=== PATIENT | female | born 1980 | race Caucasian/White ===

== ENCOUNTER 2016-10-26 15:47 | Emergency (ER) | payer SELFPAY ==
[~2016-10-26] VITALS: Wt 83.5 kg
[~2016-10-26 15:47] MED LIST: ACET500C5 PO; PRENAT PO
[2016-10-26 17:05] LABS: ADD SCAN DIFF NO
[2016-10-26 17:12] LABS: ADD UMIC YES; URINE BILIRUBIN (Dip) NEGATIVE (NEGATIVE); URINE BLOOD (Dip) 3+ (NEGATIVE); URINE COLOR LT. YELLOW (YELLOW); URINE GLUCOSE (Dip) NEGATIVE (NEGATIVE); URINE KETONES (Dip) NEGATIVE (NEGATIVE); URINE LEUKOCYTE ESTERASE (Dip) NEGATIVE (NEGATIVE); URINE NITRITE (Dip) NEGATIVE (NEGATIVE); URINE TOTAL PROTEIN (Dip) NEGATIVE (NEGATIVE); URINE UROBILINOGEN (Dip) 0.2 E.U./dL (0.1-1.0)
[2016-10-26 17:14] LABS: BASOPHIL # 0.1 10^3/ul (0.0-0.1); BASOPHILS % 0.4 % (0.0-2.0); EOSINOPHILS # 0.2 10^3/ul (0.0-0.5); EOSINOPHILS % 1.4 % (0.0-7.0); HEMATOCRIT 34.2 % (37.0-47.0); HEMOGLOBIN 11.1 g/dl (12.0-16.0); LYMPHOCYTES # 2.3 10^3/ul (0.8-2.9); LYMPHOCYTES % 20.2 % (15.0-51.0); MEAN CORPUSCULAR HEMOGLOBIN 25.8 pg (29.0-33.0); MEAN CORPUSCULAR HGB CONC 32.5 g/dl (32.0-37.0); MEAN CORPUSCULAR VOLUME 79.5 fl (82.0-101.0); MEAN PLATELET VOLUME 9.9 fl (7.4-10.4); MONOCYTE # 0.7 10^3/ul (0.3-0.9); MONOCYTES % 6.5 % (0.0-11.0); NEUTROPHIL # 7.9 10^3/ul (1.6-7.5); NEUTROPHILS % 71.2 % (39.0-77.0); PLATELET COUNT 390 10^3/UL (140-415); RED CELL DISTRIBUTION WIDTH 16.6 % (11.5-14.5); WHITE BLOOD COUNT 11.1 10^3/ul (4.8-10.8)
--- NOTE | 2016-10-26 17:38 | ERD ---
ER Documentation Chief Complaint Date/Time DATE: 10/26/16 TIME: 17:36 Chief Complaint VAG BEED 12 WEEKS PREG HPI 36-year-old female, very pleasant. Telecom Manager use. The patient is a at approximately 13 weeks gestation who presents with vaginal spotting. The patient describes vaginal spotting that started today with mild lumbar back cramping. She denies any heavy clots or heavy flow. No lightheadedness or dizziness. No anterior abdominal pain. ROS All systems reviewed and are negative except as per history of present illness. Medications Home Meds Active Scripts Acetaminophen* (Tylophen*) 500 Mg Capsule, 1 CAP PO Q6H Y for PAIN AND OR ELEVATED TEMP, #20 CAP Prov:ABDULAZIZ GARCIA PA-C 11/25/15 Reported Medications Multivit/Min/Fol Ac/Iron/Pren* ( S*) 1 Tab Tab, 1 TAB PO DAILY, TAB 04/01/14 Allergies Allergies: Coded Allergies: No Known Allergy (Unverified , 04/01/14) PMhx/Soc Medical and Surgical Hx: pt denies Medical Hx History of Surgery: Yes ( ) Anesthesia Reaction: No Hx Neurological Disorder: No Hx Respiratory Disorders: No Hx Cardiac Disorders: No Hx Psychiatric Problems: No Hx Miscellaneous Medical Probl: No Hx Alcohol Use: No Hx Substance Use: No Hx Tobacco Use: No Smoking Status: Never smoker FmHx Family History: No diabetes Physical Exam Vitals Vital Signs Date Time Temp Pulse Resp B/P Pulse Ox O2 Delivery O2 Flow Rate FiO2 10/26/16 15:53 99.2 101 18 125/78 98 Physical Exam General: Well developed, well nourished, no acute distress Head: Normocephalic, atraumatic. Eyes: Pupils equally reactive, EOM intact ENT: Moist mucous membranes Neck: Supple, no lymphadenopathy Respiratory: No respiratory distress Cardiovascular: Good capillary refill Abdominal: Soft, non-tender, non-distended, no peritoneal signs : Deferred MSK: No edema, no unilateral swelling, 5/5 strength Neurologic: Alert and oriented, moving all extremities, normal speech, no focal weakness, no cerebellar signs Skin: No rash Psych: Normal mood Result Diagram: 10/26/16 1700 Results 24 hrs Laboratory Tests Test 10/26/16 17:00 Basophils # 0.110^3/ul Basophils % 0.4% Beta HCG, Quantitative 189795.0mIU/ml Eosinophils # 0.210^3/ul Eosinophils % 1.4% Hematocrit 34.2% Hemoglobin 11.1g/dl Lymphocytes # 2.310^3/ul Lymphocytes % 20.2% Mean Corpuscular Hemoglobin 25.8pg Mean Corpuscular Hemoglobin Concent 32.5g/dl Mean Corpuscular Volume 79.5fl Mean Platelet Volume 9.9fl Monocytes # 0.710^3/ul Monocytes % 6.5% Neutrophils # 7.910^3/ul Neutrophils % 71.2% Nucleated Red Blood Cells # 0.010^3/ul Nucleated Red Blood Cells % 0.0/100WBC Platelet Count 89491^3/UL Red Blood Count 4.3010^6/ul Red Cell Distribution Width 16.6% Urine Amorphous Urates FEW Urine Bacteria FEW Urine Bilirubin NEGATIVE Urine Clarity CLEAR Urine Color LT. YELLOW Urine Glucose NEGATIVE% Urine Hemoglobin 3+ Urine Ketones NEGATIVE Urine Leukocyte Esterase NEGATIVE Urine Microscopic RBC 2-5/HPF Urine Microscopic WBC 0-2/HPF Urine Nitrite NEGATIVE Urine Specific [place] 1.020 Urine Squamous Epithelial Cells MODERATE Urine Total Protein NEGATIVE Urine Urobilinogen 0.2 E.U./dL Urine pH 7.0 White Blood Count 11.110^3/ul Procedures/MDM EKG, MONITORS, & DIAGNOSTIC IMAGING: Pelvic ultrasound: IMPRESSION: Single live intrauterine with an estimated gestational age of 11 weeks and 1 day. Heterogeneous uterus with a uterine leiomyoma. RPTAT: HPNM LAB INTERPRETATION: Serum hCG: Appropriate Rh status: O+, no RhoGam MEDICAL DECISION MAKING: The patient's symptoms are most consistent with acute threatened miscarriage. She exhibits no signs or symptoms concerning for acute ectopic however this needs to be evaluated here in the emergency room and be ruled out. In addition I doubt other acute intra-abdominal process such as ovarian cyst, ovarian torsion, acute appendicitis, colitis, kidney stone, acute pancreatitis or acute cholecystitis. The patient will require further evaluation, laboratory testing and diagnostic imaging to evaluate and rule out acute ectopic . Patient will also require prompt outpatient SOFTWARE QUALITY SPECIALIST follow-up. We discussed this at the bedside. We had an in-depth conversation regarding the diagnosis of threatened miscarriage, the prevalence of this process, the expected management as well as return precautions. ER COURSE: The patient does have apparent asymptomatic bacteriuria and urinalysis. Macrobid will be initiated. The patient has an appropriate ultrasound. The patient is safe for discharge I kept the patient and/or family informed of laboratory and diagnostic imaging results throughout the emergency room course. DISPOSITION PLAN: We discussed follow up with the patient's primary care doctor within 24 to 48 hours as needed. We also discussed return to the emergency room for worsening symptoms or worsening condition. Close outpatient SOFTWARE QUALITY SPECIALIST follow-up for repeat hCG value in 2-3 days and ultrasound as needed. Discharge medications: Macrobid Departure Diagnosis: Primary Impression: Threatened miscarriage Additional Impression: Asymptomatic bacteriuria during Condition: Stable LILY CARPIO MD Oct 26, 2016 17:37
[2016-10-26 17:50] LABS: BACTERIA,URINE FEW; SQUAMOUS EPITHELIAL CELL,UR MODERATE
--- NOTE | 2016-10-26 18:08 | RADRPT ---
PROCEDURE: US OB. CLINICAL INDICATION: Vaginal bleeding TECHNIQUE: Transabdominal and transvaginal views of the pelvis are available for review. COMPARISON: No prior studies are available for comparison. FINDINGS: The mean gestational sac diameter is 5 cm. [place]ber[place]-rump length:4 cm heart rate:171 beats per minute Ultrasound estimated gestational age:11 weeks and 1 day Estimated date of delivery: 05/16/2017. The uterus measures 14.7 x 6.5 x 9.7 cm in size. The uterus is heterogeneous in echogenicity. A hyp oechoic structure is seen in the uterus measuring 3.9 x 2.3 x 3.4 cm in size and is consistent with a leiomyoma. The right ovary measures 3.5 x 1.9 x 2.5 cm and the left ovary measures 3.2 x 1.7 x 2. 2 cm are normal in size and echogenicity with normal color flow. No ovarian or adnexal mass lesion is seen. There is no free fluid. IMPRESSION: Single live intrauterine with an estimated gestational age of 11 weeks and 1 day. Heterogeneous uterus with a uterine leiomyoma. RPTAT: HPNM Physician Bj Date Time Electronically viewed and signed by Physician Bj on 10/26/2016 18:08 /
[2016-10-26] MEDS ORDERED: NITR-58 PO (18:37)
== END 2016-10-26 18:46 | disposition home or self-care (01) ==
LOC: FTE 15:47
DX: O20.0 Threatened abortion (principal); O23.40 Unspecified infection of urinary tract in pregnancy, unspecified trimester
CPT/HCPCS: 36415; 76801; 81001; 81003; 84702; 85025; 86900; 86901

== ENCOUNTER 2017-01-24 15:25 | Emergency (ER) | payer OTHER ==
[~2017-01-24] VITALS: Ht 162.6 cm; Wt 87.0 kg
[~2017-01-24 15:25] MED LIST changes: +NITR-58 PO
[2017-01-24 15:27] VITALS: Ht 162.6 cm; Wt 87.0 kg
--- NOTE | 2017-01-24 17:04 | RADRPT ---
PROCEDURE: US Abdomen. CLINICAL INDICATION: abdominal pain , rash TECHNIQUE: Multiple real-time images were acquired of the patient's right upper quadrant abdomen a nd retroperitoneum utilizing a high resolution transducer. COMPARISON: None FINDINGS: The liver demonstrates increased echogenicity. The liver is enlarged in size and no focal solid les ions are seen. The liver measures 19.5 cm in length. The portal vein is patent with normal direction of flow. No intrahepatic biliary dilatation is seen. No gallstones are identified within the gallbladder. There is no pericholecystic fluid or gallbladd er wall thickening. The common bile duct measures 5 mm in maximal dimension. The visualized portions of the pancreas are unremarkable. The tail of the pancreas is not seen. No free fluid is identified. The right kidney is normal in size, and demonstrate normal echogenicity and cortical thickness. The right kidney measures 13.6 cm in long dimension. There is no evidence of hydronephrosis. There are no kidney stones. RPTAT: AA IMPRESSION: Mild hepatomegaly with diffuse fatty infiltration. No evidence of gallstones. .Landen Hooks MD, Date Time Electronically viewed and signed by .Landen Hooks MD, on 01/24/2017 17:04 .S/
--- NOTE | 2017-01-24 17:06 | RADRPT ---
PROCEDURE: US OB. CLINICAL INDICATION: Size and dates , rash TECHNIQUE: Multiple sonographic images of the pelvis and gravid uterus were obtained. The images were reviewed on a PACS workstation. COMPARISON: No prior studies are available for comparison. FINDINGS: The cervix is closed with a length of 4.5 cm. There is a single viable intrauterine gestation. Cardiac activity is present with 137 beats per min nancy. There is a variable/breech presentation. The placenta is anterior. There is no evidence for an abruption or placenta previa. There is a normal amount of amniotic fluid with a MVP= 7.4 cm. Measurements were made in order to determine age. The results are as follows: BPD =6.0 cm HC =21.3 cm AC =19.7 cm FL =4.3 cm Estimated gestational age of approximately 24 weeks and 0 days based on ultrasound measurements. The estimated date of delivery is 05/16/17, based on ultrasound measurements. The EFW = 666 g RPTAT: AA IMPRESSION: Single viable intrauterine gestation of approximately 24 weeks and 0 days based on ultrasound measu rements. .Landen Hooks MD, Date Time Electronically viewed and signed by .Landen Hooks MD, on 01/24/2017 17:05 .S/
--- NOTE | 2017-01-24 17:18 | ERD ---
ER Documentation Chief Complaint Date/Time DATE: 01/24/17 TIME: 17:16 Chief Complaint RASH TO CHEST X 3 DAYS HPI 28-year-old female who is A1 approximately 24 weeks was referred to the emergency department to rule out cholestasis from her OB secondary to a pruritic rash on her chest for the past 3 days. Patient has had a history of high-risk pregnancies, including hypertension and proteinuria. Last menstrual period being middle to end of July 2016. Her doctor is Dr. Hernandes. She denies abdominal pain, nausea, vomiting, fever. No dizziness, chest pain or shortness of breath. She has not noticed any edema. ROS All systems reviewed and are negative except as per history of present illness. Medications Home Meds Active Scripts Ferrous Sulfate* (Ferrous Sulfate*) 325 Mg Tabec, 325 MG PO TID, #90 TAB Prov:NATHANIEL JEFF PA-C 01/24/17 Nitrofurantoin Monohyd Macrocr* (Macrobid*) 100 Mg Capsr, 100 MG PO BID for 7 Days, CAP Prov:LILY CARPIO MD 10/26/16 Acetaminophen* (Tylophen*) 500 Mg Capsule, 1 CAP PO Q6H Y for PAIN AND OR ELEVATED TEMP, #20 CAP Prov:ABDULAZIZ GARCIA PA-C 11/25/15 Reported Medications Multivit/Min/Fol Ac/Iron/Pren* ( S*) 1 Tab Tab, 1 TAB PO DAILY, TAB 04/01/14 Allergies Allergies: Coded Allergies: No Known Allergy (Unverified , 04/01/14) PMhx/Soc History of Surgery: Yes ( ) Anesthesia Reaction: No Hx Neurological Disorder: No Hx Respiratory Disorders: No Hx Cardiac Disorders: No Hx Psychiatric Problems: No Hx Miscellaneous Medical Probl: No Hx Alcohol Use: No Hx Substance Use: No Hx Tobacco Use: No Smoking Status: Never smoker Physical Exam Vitals Vital Signs Date Time Temp Pulse Resp B/P Pulse Ox O2 Delivery O2 Flow Rate FiO2 01/24/17 15:27 97.7 113 18 121/67 98 Physical Exam General: Well-developed, well-nourished. The patient appears in no acute distress. HEENT: Head is normocephalic, atraumatic. No scleral icterus. Neck: Supple. Nontender. Lungs: Clear to auscultation. Normal air movement. Heart: Regular rate and rhythm. S1 and S2 are normal. No murmurs, gallops, or rubs. Abdomen: Soft, nontender, nondistended. Bowel sounds are normoactive. Appropriate fundal height. Negative Calzada's sign. Extremities: No clubbing or cyanosis. Normal pulses. Moving extremities x 4. No weakness. Neurologic: Alert and oriented 3. No focal deficits. Skin: Normal turgor. No rash or lesions. Result Diagram: 01/24/17 1720 01/24/17 1720 Results 24 hrs Laboratory Tests Test 01/24/17 17:20 White Blood Count 9.310^3/ul Red Blood Count 3.6410^6/ul Hemoglobin 8.7g/dl Hematocrit 28.9% Mean Corpuscular Volume 79.4fl Mean Corpuscular Hemoglobin 23.9pg Mean Corpuscular Hemoglobin Concent 30.1g/dl Red Cell Distribution Width 15.9% Platelet Count 28589^3/UL Mean Platelet Volume 9.9fl Neutrophils % 73.8% Lymphocytes % 17.7% Monocytes % 6.4% Eosinophils % 1.3% Basophils % 0.2% Nucleated Red Blood Cells % 0.0/100WBC Neutrophils # 6.910^3/ul Lymphocytes # 1.710^3/ul Monocytes # 0.610^3/ul Eosinophils # 0.110^3/ul Basophils # 0.010^3/ul Nucleated Red Blood Cells # 0.010^3/ul Urine Color LT. YELLOW Urine Clarity SLIGHTLY CLOUDY Urine pH 6.0 Urine Specific [place] 1.025 Urine Ketones 40 Urine Nitrite NEGATIVE Urine Bilirubin NEGATIVE Urine Urobilinogen 0.2 E.U./dL Urine Leukocyte Esterase NEGATIVE Urine Microscopic RBC NONE SEEN/HPF Urine Microscopic WBC 0-2/HPF Urine Squamous Epithelial Cells MANY Urine Bacteria MANY Urine Hemoglobin NEGATIVE Urine Glucose NEGATIVE% Urine Total Protein TRACE Sodium Level 137mmol/L Potassium Level 3.4mmol/L Chloride Level 102mmol/L Carbon Dioxide Level 24mmol/L Anion Gap 14 Blood Urea Nitrogen 9mg/dl Creatinine 0.42mg/dl Glucose Level 83mg/dl Calcium Level 9.2mg/dl Total Bilirubin 0.2mg/dl Direct Bilirubin 0.00mg/dl Indirect Bilirubin 0.2mg/dl Aspartate Amino Transf (AST/SGOT) 19IU/L Alanine Aminotransferase (ALT/SGPT) 29IU/L Alkaline Phosphatase 70IU/L Total Protein 7.7g/dl Albumin 3.8g/dl Globulin 3.90g/dl Albumin/Globulin Ratio 0.97 Lipase 99U/L PROCEDURE: US Abdomen. CLINICAL INDICATION: abdominal pain , rash TECHNIQUE: Multiple real-time images were acquired of the patient's right upper quadrant abdomen and retroperitoneum utilizing a high resolution transducer. COMPARISON: None FINDINGS: The liver demonstrates increased echogenicity. The liver is enlarged in size and no focal solid lesions are seen. The liver measures 19.5 cm in length. The portal vein is patent with normal direction of flow. No intrahepatic biliary dilatation is seen. No gallstones are identified within the gallbladder. There is no pericholecystic fluid or gallbladder wall thickening. The common bile duct measures 5 mm in maximal dimension. The visualized portions of the pancreas are unremarkable. The tail of the pancreas is not seen. No free fluid is identified. The right kidney is normal in size, and demonstrate normal echogenicity and cortical thickness. The right kidney measures 13.6 cm in long dimension. There is no evidence of hydronephrosis. There are no kidney stones. RPTAT: AA IMPRESSION: Mild hepatomegaly with diffuse fatty infiltration. No evidence of gallstones. .Landen Hooks MD, Date Time Electronically viewed and signed by .Landen Hooks MD, MD on 01/24/2017 17: 04 .S/ PROCEDURE: US OB. CLINICAL INDICATION: Size and dates , rash TECHNIQUE: Multiple sonographic images of the pelvis and gravid uterus were obtained. The images were reviewed on a PACS workstation. COMPARISON: No prior studies are available for comparison. FINDINGS: The cervix is closed with a length of 4.5 cm. There is a single viable intrauterine gestation. Cardiac activity is present with 137 beats per minute. There is a variable/breech presentation. The placenta is anterior. There is no evidence for an abruption or placenta previa. There is a normal amount of amniotic fluid with a MVP= 7.4 cm. Measurements were made in order to determine age. The results are as follows: BPD = 6.0 cm HC = 21.3 cm AC = 19.7 cm FL = 4.3 cm Estimated gestational age of approximately 24 weeks and 0 days based on ultrasound measurements. The estimated date of delivery is 05/16/17, based on ultrasound measurements. The EFW = 666 g RPTAT: AA IMPRESSION: Single viable intrauterine gestation of approximately 24 weeks and 0 days based on ultrasound measurements. .Landen Hooks MD, MD Date Time Electronically viewed and signed by .Landen Hooks MD, MD on 01/24/2017 17: 05 .S/ Procedures/MDM 36-year-old female who is a 24 weeks comes emergency room with a pruritic rash to her chest for the past 3 days. She does not have evidence of cholecystitis, help syndrome, preeclampsia among others are part of my differential diagnosis. Anemia was noted on the CBC, platelets were normal. Her bilirubin was not elevated, AST and ALT are normal as well as lipase. 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 There is no edema on examination. Ultrasound of her gallbladder and right upper quadrant shows hepatic steatosis however no evidence of gallstones or sludge. OB ultrasound shows a single live intrauterine with positive heart tones at 24 weeks. Patient will be discharged at this point from the emergency room and will be sent up to OB for further evaluation and possible monitoring. Departure Diagnosis: Primary Impression: Rash Additional Impressions: Second trimester Anemia Condition: NATHANIEL Barraza PA-C January 24, 2017 17:17
[2017-01-24 17:36] LABS: ADD SCAN DIFF NO
[2017-01-24 17:38] LABS: BASOPHILS % 0.2 % (0.0-2.0); EOSINOPHILS # 0.1 10^3/ul (0.0-0.5); EOSINOPHILS % 1.3 % (0.0-7.0); HEMATOCRIT 28.9 % (37.0-47.0); HEMOGLOBIN 8.7 g/dl (12.0-16.0); LYMPHOCYTES # 1.7 10^3/ul (0.8-2.9); LYMPHOCYTES % 17.7 % (15.0-51.0); MEAN CORPUSCULAR HEMOGLOBIN 23.9 pg (29.0-33.0); MEAN CORPUSCULAR HGB CONC 30.1 g/dl (32.0-37.0); MEAN CORPUSCULAR VOLUME 79.4 fl (82.0-101.0); MEAN PLATELET VOLUME 9.9 fl (7.4-10.4); MONOCYTE # 0.6 10^3/ul (0.3-0.9); MONOCYTES % 6.4 % (0.0-11.0); NEUTROPHIL # 6.9 10^3/ul (1.6-7.5); NEUTROPHILS % 73.8 % (39.0-77.0); PLATELET COUNT 362 10^3/UL (140-415); RED BLOOD COUNT 3.64 10^6/ul (4.20-5.40); RED CELL DISTRIBUTION WIDTH 15.9 % (11.5-14.5); WHITE BLOOD COUNT 9.3 10^3/ul (4.8-10.8)
[2017-01-24 17:43] LABS: ADD UMIC YES; URINE BILIRUBIN (Dip) NEGATIVE (NEGATIVE); URINE BLOOD (Dip) NEGATIVE (NEGATIVE); URINE COLOR LT. YELLOW (YELLOW); URINE GLUCOSE (Dip) NEGATIVE (NEGATIVE); URINE KETONES (Dip) 40 (NEGATIVE); URINE LEUKOCYTE ESTERASE (Dip) NEGATIVE (NEGATIVE); URINE NITRITE (Dip) NEGATIVE (NEGATIVE); URINE TOTAL PROTEIN (Dip) TRACE (NEGATIVE); URINE UROBILINOGEN (Dip) 0.2 E.U./dL (0.1-1.0)
[2017-01-24 17:56] LABS: ALBUMIN 3.8 g/dl (3.3-4.9)
[2017-01-24 17:57] LABS: POTASSIUM 3.4 mmol/L (3.5-5.1)
[2017-01-24 17:58] LABS: URINE RBCS NONE SEEN /HPF (0)
[2017-01-24 17:59] LABS: BACTERIA,URINE MANY; BILIRUBIN,INDIRECT 0.2 mg/dl (0-1.1); BILIRUBIN,TOTAL 0.2 mg/dl (0.2-1.3); CREATININE 0.42 mg/dl (0.44-1.00); SQUAMOUS EPITHELIAL CELL,UR MANY
[2017-01-24 18:00] LABS: ALBUMIN/GLOBULIN RATIO 0.97; CALCIUM 9.2 mg/dl (8.4-10.2); TOTAL PROTEIN 7.7 g/dl (6.1-8.1)
[2017-01-24] MEDS ORDERED: FER325 PO (18:04)
[2017-01-24 18:38] VITALS: BP 117/84; PULSE 89; RESP 16
== END 2017-01-24 18:39 | disposition home or self-care (01) ==
LOC: FTE 15:25
DX: O99.89 Other specified diseases and conditions complicating pregnancy, childbirth and the puerperium (principal); R21 Rash and other nonspecific skin eruption; O99.012 Anemia complicating pregnancy, second trimester; Z3A.24 24 weeks gestation of pregnancy
CPT/HCPCS: 76705; 76805; 80053; 81001; 81003; 83690; 83789; 84702; 85025

== ENCOUNTER 2017-03-11 11:53 | Outpatient (CLI) | payer OTHER ==
[~2017-03-11] VITALS: Ht 157.5 cm; Wt 90.4 kg
[~2017-03-11 11:53] MED LIST changes: +FER325 PO
[2017-03-11 12:16] VITALS: BP 131/65; PULSE 110; RESP 18; Ht 157.5 cm; Wt 90.4 kg
[2017-03-11 12:59] LABS: ADD UMIC NO; UR ASCORBIC ACID NEGATIVE (NEGATIVE); UR BILIRUBIN (Dip) NEGATIVE (NEGATIVE); UR BLOOD (Dip) NEGATIVE (NEGATIVE); UR CLARITY CLEAR (CLEAR); UR COLOR YELLOW (YELLOW); UR GLUCOSE (Dip) NEGATIVE (NEGATIVE); UR KETONES (Dip) NEGATIVE (NEGATIVE); UR LEUKOCYTE ESTERASE (Dip) NEGATIVE Leu/ul (NEGATIVE); UR NITRITE (Dip) NEGATIVE (NEGATIVE); UR SPECIFIC GRAVITY (Dip) 1.011 (1.003-1.030); UR TOTAL PROTEIN (Dip) NEGATIVE (NEGATIVE); UR UROBILINOGEN (Dip) NEGATIVE (NEGATIVE)
--- NOTE | 2017-03-11 13:06 | RADRPT ---
PROCEDURE: OB ultrasound for biophysical profile CLINICAL INDICATION: labor TECHNIQUE: Multiple sonographic images of the pelvis were obtained. Transabdominal views of the g ravid uterus are available for review. The images were reviewed on a PACS workstation. COMPARISON: None FINDINGS: breathing movement = 2/2 tone = 2/2 motion = 2/2 SARAH = 2/2 SARAH = 13.9 cm Single live intrauterine with cardiac activity of 141 bpm. position is breech . The placenta is anterior. IMPRESSION: 1. Single live intrauterine gestation. 2. Biophysical profile = 8/8. 3. SARAH = 13.9 cm. 4. Breech presentation. RPTAT: HH .Dawn Seymour MD, MD Date Time Electronically viewed and signed by .Dawn Seymour MD, on 03/11/2017 13:06 .G/
--- NOTE | 2017-03-11 13:31 | RADRPT ---
PROCEDURE: Obstetrical ultrasound CLINICAL INDICATION: Labor TECHNIQUE: Multiple sonographic images of the pelvis were obtained. The images were reviewed on a PACS workstation. COMPARISON: None FINDINGS: The cervix is closed with a length of 3.6 cm. There is a single viable intrauterine gestation. Cardiac activity is present with 144 beats per minute. There is a breech presentation. The placenta is anterior. There is no evidence for an abruption or placenta previa. There is a normal amount of amniotic fluid with an SARAH = 13.9 cm. Measurements were made in order to determine age. The results are as follows (cm): BPD =7.63 HC =28.40 AC =28.54 FL =5.69 Estimated gestational age by ultrasound of approximately 31 weeks, 0 days. The estimated date of delivery by ultrasound is 05/13/2017. Estimated gestational age by LMP of approximately 32 weeks, 6 days. The estimated date of delivery by LMP is 04/30/2017. EFW = 1768 grams (8th percentile) IMPRESSION: Single viable intrauterine gestation of approximately 31 weeks, 0 days . The estimated date of delivery is 05/13/2017 . Dating by ultrasound is within 13 days of dating by LMP. Breech presentation. Normal SARAH. Estimated weight is in the 8th percentile. RPTAT: EE Physician Nicola Date Time Electronically viewed and signed by Physician Nicola on 03/11/2017 13:31 /
--- NOTE | 2017-03-11 13:54 | TRIAGE ---
OB Triage Datetime Report Generated by CPN: 03/11/2017 13:53 Datetime: 03/11/2017 13:00 Stage of : OB Triage Labor Evaluation Frequency: NONE Monitor Mode: External Resting Tone [place]: Relaxed Heart Rate FHR Baseline Rate: 135 Monitor Mode: External US Variability: Moderate 6-25 bpm Accelerations: 15X15 Decelerations: None Datetime: 03/11/2017 12:13 Assessment Type: Triage Maternal Assessment Level of Consciousness: Fully Conscious DTR's/Clonus: DTRs 2+; No Clonus Headache: Denies Blurred Vision: No Respiratory Effort: Unlabored; Regular Rhythm; Equal Expansion Breath Sounds, Left: Clear and Equal Breath Sounds, Right: Clear and Equal Nausea/Vomiting: Denies RUQ Epigastric Pain: Denies Lower Extremities Edema: Bilateral Lower Extremities Degree: 1+ Upper Extremities Edema: None Degree: None Facial Edema: None Fall Risk Assessment History of Falling: (0) No Secondary Diagnosis: (0) No Ambulatory Aid: (0) Bedrest/Nurse Assist IV Therapy: (0) No Gait: (0) Normal/Bedrest/Immobile Mental Status: (0) Oriented to Own Ability Fall Score: 0 Fall Risk Score Definition: No Risk: No action required Datetime: 03/11/2017 12:10 Monitor Mode: External Monitor Mode: External US Datetime: 03/11/2017 12:06 Time of Arrival: 03/11/2017 11:43 EGA: 30.4 Arrived By: Ambulatory Arrived From: Office Chief Complaint: PT HERE C/O CRAMPING Movement: Present Contractions: Irregular Rupture of Membranes: Denies Vaginal Bleeding: None Vaginal Discharge: Denies Recent Sexual Intercouse: Denies Abdominal Trauma: Not Applicable Patient Complaints: Contractions; Cramping; Back Pain Time Provider Notified: 03/11/2017 12:24 Provider Notified: NORA Initial Plan: EFM. UA, U/S FOR BPP, EFW
== END 2017-03-11 14:03 | disposition home or self-care (01) ==
LOC: OBT 11:53 → L-D 11:55 → OBT 14:03
PROVIDERS: ATTEND Obstetrics & Gynecology
DX: O60.03 Preterm labor without delivery, third trimester (principal); Z3A.31 31 weeks gestation of pregnancy
CPT/HCPCS: 76815; 76817; 76818; 81003; Z7500; G0463

== ENCOUNTER 2017-04-11 22:35 | Outpatient (CLI) | payer OTHER ==
[~2017-04-11] VITALS: Ht 154.9 cm; Wt 92.2 kg
[~2017-04-11 22:35] MED LIST changes: -ACET500C5 PO; -FER325 PO; -NITR-58 PO
[2017-04-11 22:57] VITALS: BP 133/68; PULSE 97; RESP 18
[2017-04-12] MEDS ORDERED: TERBUTALINE 1 MG/ML INJ SC ONE
[2017-04-12 00:27] LABS: ADD UMIC YES; UR ASCORBIC ACID 40 mg/dL (NEGATIVE); UR BACTERIA FEW /HPF (NONE SEEN); UR BILIRUBIN (Dip) NEGATIVE (NEGATIVE); UR BLOOD (Dip) NEGATIVE (NEGATIVE); UR CLARITY SLIGHTLY CLOUDY (CLEAR); UR COLOR YELLOW (YELLOW); UR GLUCOSE (Dip) NEGATIVE (NEGATIVE); UR KETONES (Dip) TRACE mg/dL (NEGATIVE); UR LEUKOCYTE ESTERASE (Dip) NEGATIVE Leu/ul (NEGATIVE); UR MUCUS MODERATE /HPF (NONE SEEN); UR NITRITE (Dip) NEGATIVE (NEGATIVE); UR RBC 1 /HPF (0-5); UR SPECIFIC GRAVITY (Dip) 1.029 (1.003-1.030); UR SQUAMOUS EPITHELIAL CELL FEW /HPF (FEW); UR TOTAL PROTEIN (Dip) 1+ mg/dl (NEGATIVE); UR UROBILINOGEN (Dip) NEGATIVE (NEGATIVE)
--- NOTE | 2017-04-12 01:09 | RADRPT ---
PROCEDURE: OB ultrasound for biophysical profile CLINICAL INDICATION: labor. TECHNIQUE: Multiple sonographic images of the gravid uterus performed. The images were reviewed on a PACS workstation. COMPARISON: 03/11/2017 FINDINGS: A single live intrauterine is identified with heart rate of 152 bpm. Fet us is in a cephalic presentation with [place] presenting for. Placenta is located anterior. Biophysical profile: breathing movement = 2/2 tone = 2/2 motion = 2/2 SARAH = 2/2 SARAH = 15.8 cm. IMPRESSION: 1. Single live intrauterine gestation. 2. Biophysical profile = 8/8. 3. SARAH = 15.8 cm. RPTAT: HMVK .Jairo Waggoner MD, Date Time Electronically viewed and signed by .Jairo Waggoner MD, MD on 04/12/2017 01:09 .K/
--- NOTE | 2017-04-12 01:20 | RADRPT ---
PROCEDURE: US OB. CLINICAL INDICATION: labor. TECHNIQUE: Multiple sonographic images of the pelvis were obtained. Transabdominal imaging only w as performed. The images were reviewed on a PACS workstation. COMPARISON: 03/11/2017. FINDINGS: Single live intrauterine is identified. Cardiac activity is present with 168 beats per mi nute. There is a vertex presentation. Measurements: BPD = 36 weeks 6 days. HC = 37 weeks 3 days. AC = 38 weeks 0 days. FL = 33 weeks 6 days. Estimated gestational age of approximately 36 weeks 4 days. The estimated date of delivery is 05/06/2017. The EFW = 3039 g which is at the 85th percentile. The placenta is anterior. There is no evidence for placenta previa. Cervix is 4.22 cm in length and closed. IMPRESSION: Single live intrauterine gestation of approximately 36 weeks 4 days. RPTAT: HMVK .Jairo Waggoner MD, Date Time Electronically viewed and signed by .Jairo Waggoner MD, on 04/12/2017 01:20 .K/
--- NOTE | 2017-04-12 03:20 | PN ---
Triage Information Date/Time 04/12/300 Weeks of Gestation 34w4d by record today at triage all measurement larger 2wks exept femoral length EFW 3039 CVL 4.2 : 4 Para: 2 Diabetes: none Hypertention: none Additional information uterine contractions since 04/11 relieved by resting Objective Vital Signs Date Time Temp Pulse Resp B/P Pulse Ox O2 Delivery O2 Flow Rate FiO2 04/11/17 22:57 99.0 97 18 133/68 Room Air Heart Rate: 150's Contractions: >10 Minutes Apart Exam VE closed Long high Results/Medications Results 24 hrs Laboratory Tests Test 04/11/17 22:40 Urine Color YELLOW Urine Clarity SLIGHTLY CLOUDY A Urine pH 6.0 Urine Specific [place] 1.029 Urine Ketones TRACE A Urine Nitrite NEGATIVE Urine Bilirubin NEGATIVE Urine Urobilinogen NEGATIVE Urine Leukocyte Esterase NEGATIVE Urine Microscopic RBC 1 Urine Microscopic WBC 2 Urine Squamous Epithelial Cells FEW Urine Bacteria FEW A Urine Mucus MODERATE Urine Hemoglobin NEGATIVE Urine Glucose NEGATIVE Urine Total Protein 1+ H Medications x1 terbutaline Imaging Results BPp 8/8 SARAH 15.8 EFW 3039 85% Assessment/Plan IUP 34w6d? poss 2w more discharge home with routine instructions RTH prn f/u with her OB TIFFANIE AMBROSE MD Apr 12, 2017 03:12
--- NOTE | 2017-04-12 06:18 | TRIAGE ---
OB Triage Datetime Report Generated by CPN: 04/12/2017 06:17 Datetime: 04/12/2017 01:51 Stage of : OB Triage Datetime: 04/12/2017 01:30 Stage of : OB Triage Pain Assessment Pain Scale: 2 Pain Presence: Intermittent Pain Type: Cramping Datetime: 04/12/2017 00:36 Monitor Mode: External Resting Tone [place]: Relaxed Heart Rate FHR Baseline Rate: 135 Monitor Mode: External US Datetime: 04/12/2017 00:15 Heart Rate FHR Baseline Rate: 140 Monitor Mode: External US FHR Baseline Changes: No Baseline Change Variability: Moderate 6-25 bpm Accelerations: 15X15 Decelerations: None Category: Category I Datetime: 04/12/2017 00:00 Labor Evaluation Frequency: none Monitor Mode: External Pattern: Normal: <= 5 Contractions in 10 Minutes Resting Tone [place]: Relaxed Heart Rate FHR Baseline Rate: 125 Monitor Mode: External US FHR Baseline Changes: No Baseline Change Variability: Moderate 6-25 bpm Accelerations: 15X15 Decelerations: None Category: Category I Datetime: 04/11/2017 23:40 Stage of : OB Triage Datetime: 04/11/2017 23:35 Stage of : OB Triage Datetime: 04/11/2017 23:30 Vaginal Exam Dilatation (cms): 0.0 Effacement (%): 0 Station: -4 Membrane Status: Intact Vaginal Bleeding: None Cervix, Consistency: Firm Cervix, Position: Posterior Datetime: 04/11/2017 22:47 Stage of : OB Triage Maternal Assessment Level of Consciousness: Fully Conscious Headache: Denies Blurred Vision: No Respiratory Effort: Unlabored Nausea/Vomiting: Denies RUQ Epigastric Pain: Denies Facial Edema: None Labor Evaluation Frequency: placed Monitor Mode: External Resting Tone [place]: Relaxed Monitor Mode: External US Comments: FHT 140 Pain Assessment Pain Scale: 8 Pain Presence: Intermittent Pain Type: Contraction Pain Location: Abdomen Datetime: 04/11/2017 22:43 Time of Arrival: 04/11/2017 22:30 EGA: 34.6 Arrived By: Wheelchair Arrived From: Home Chief Complaint: hx c/s x2 c/o ucs Movement: Present Contractions: Regular Time Contractions Began: 04/11/2017 09:00 Contractions: Q10 Rupture of Membranes: Denies Vaginal Bleeding: None Vaginal Discharge: Denies Recent Sexual Intercouse: Denies Abdominal Trauma: Not Applicable Patient Complaints: Contractions Time Provider Notified: 04/11/2017 23:35 Provider Notified: Dr Miller Initial Plan: EFM, SVE Datetime: 03/11/2017 13:50 Stage of : OB Triage Maternal Assessment Level of Consciousness: Fully Conscious Labor Evaluation Frequency: NONE Monitor Mode: External Resting Tone [place]: Relaxed Heart Rate FHR Baseline Rate: 145 Monitor Mode: External US Variability: Moderate 6-25 bpm Accelerations: 15X15 Decelerations: None Pain Assessment Pain Scale: 3 Pain Presence: Constant Pain Type: Ache Pain Location: Abdomen Pain Goal: 3 Pain Relief Measures: Comfort Measures Membrane Status: Intact Vaginal Bleeding: None Datetime: 03/11/2017 13:00 Maternal Assessment Level of Consciousness: Fully Conscious Pain Assessment Pain Scale: 3 Pain Presence: Constant Pain Type: Ache Pain Location: Abdomen Pain Goal: 3 Pain Relief Measures: Comfort Measures Membrane Status: Intact Vaginal Bleeding: None Datetime: 03/11/2017 12:13 Fall Risk Assessment Fall Score: 0 Fall Risk Score Definition: No Risk: No action required Datetime: 03/11/2017 12:06 EGA: 30.3
== END 2017-04-12 02:00 | disposition home or self-care (01) ==
LOC: OBT 22:35 → L-D 22:37 → OBT 04-12 02:00
PROVIDERS: ATTEND Obstetrics & Gynecology
DX: O62.9 Abnormality of forces of labor, unspecified (principal); Z3A.34 34 weeks gestation of pregnancy
CPT/HCPCS: 76815; 76818; 81001; G0463; J3105

== ENCOUNTER 2017-04-20 15:12 | Outpatient (CLI) | payer OTHER ==
[~2017-04-20] VITALS: Ht 154.9 cm; Wt 93.0 kg
--- NOTE | 2017-04-20 16:34 | RADRPT ---
PROCEDURE: US OB biophysical profile. CLINICAL INDICATION: decreased movements, pain TECHNIQUE: Multiple sonographic images of the pelvis were obtained. The images were reviewed on a PACS workstation. COMPARISON: 04/12/17 FINDINGS: There is a single viable intrauterine gestation. Cardiac activity is present with 123 beats per min nancy. There is a transverse maternal right presentation. The placenta is anterior. There is no evidence of placental abruption. There is a normal amount of amniotic fluid with an SARAH = 11.3 cm. Biophysical profile: movement 2/2 tone 2/2. breathing 2/2 SARAH 2/2 Total 04/23 RPTAT: AA . IMPRESSION: Normal biophysical profile. . .Landen Hooks MD, MD Date Time Electronically viewed and signed by .Landen Hooks MD, MD on 04/20/2017 16:33 .S/
[2017-04-20 16:57] VITALS: BP 123/64; PULSE 106; RESP 18; Ht 154.9 cm; Wt 93.0 kg
--- NOTE | 2017-04-20 17:14 | CONS ---
Date/Time of Note Date/Time of Note DATE: 04/20/17 TIME: 16:57 Consultation Date/Type/Reason Admit Date/Time April 20, 2017 OB triage consult Reason for Consultation This patient is a 37 years old 4 para 2 1 who had 2 previous deliveries by section. Her estimated date of confinement is May 17, 2017 which makes her 36 weeks and 1 day now. She came in complaining of abdominal pain ,contractions and vaginal pressure On examination; she is a well-developed well-nourished woman near term. Her vital signs are basically normal with blood pressure of 123/64, pulse rate 106,respiration 18, and temperature 98.3 Her abdomen is soft ,very rare contractions , heart tone is normal . On pelvic examination cervix is closed ,50% effaced -3 station with intact membranes. Constitutional: No chills, No diaphoresis, No disoriented, No febrile, No improved, No no complaints, No other, No poor po, No requiring IVF, No requiring O2 Eyes: No discharge, No no complaints, No other, No pain, No redness, No visual change ENT: No bleeding, No congestion, No discharge, No dysphagia, No no complaints, No other, No pain, No sore throat Respiratory: No cough, No no complaints, No other, No pain, No pleuritic pain, No shortness of breath, No sputum, No wheezing Cardiovascular: No chest pain, No edema, No lightheadedness, No no complaints, No orthopenea, No other, No palpitations, No paroxysmal nocturnal dyspnea Gastrointestinal: other (Abdomen is soft ,no dimension , heart tone is normal), No blood, No constipation, No decreased appetite, No diarrhea, No flatus, No nausea, No no complaints, No pain, No passing stool, No vomiting Genitourinary: other (No CVA tenderness) Musculoskeletal: No back pain, No bone/joint pain, No neck pain, No no complaints, No other, No restricted range of motion, No swelling Skin: No bruising, No erythema, No laceration, No no complaints, No other, No pruritis, No rash, No skin lesions Neurologic: No confusion, No dizziness, No focal-weakness, No headache, No no complaints, No seizure, No syncope Endocrine: No dry skin, No no complaints, No other, No polydypsia, No polyuria , No temp intolerance Additional Comments We did an ultrasound study the report was a single viable intrauterine gestation with heart low 123 bpm in transverse position Center was anterior no evidence of abruption her biophysical profile was 8/8 and the SARAH was reported 11.3 cm With these finding patient was discharged home to be followed in Dr. Bill Maria's clinic Final diagnosis; 36 weeks false labor MONTY STEWART MD Apr 20, 2017 17:10
== END 2017-04-20 17:00 | disposition home or self-care (01) ==
LOC: OBT 15:12 → L-D 15:17 → OBT 17:00
PROVIDERS: ATTEND Obstetrics & Gynecology
DX: O47.03 False labor before 37 completed weeks of gestation, third trimester (principal); Z3A.36 36 weeks gestation of pregnancy; O34.219 Maternal care for unspecified type scar from previous cesarean delivery
CPT/HCPCS: 76818; Z7500; G0463

== ENCOUNTER 2017-05-01 14:28 | Inpatient (IN) | payer OTHER ==
[~2017-05-01] VITALS: Ht 154.9 cm; Wt 91.8 kg
[~2017-05-01 14:28] MED LIST changes: +ACET500C5 PO; +FER325 PO; +NITR-58 PO
[2017-05-01 14:54] VITALS: Ht 154.9 cm; Wt 91.8 kg
[2017-05-01 14:55] VITALS: BP 135/73; PULSE 56; RESP 18
--- NOTE | 2017-05-01 15:37 | RADRPT ---
PROCEDURE: US OB biophysical profile. CLINICAL INDICATION: decreased movements, contractions TECHNIQUE: Multiple sonographic images of the pelvis were obtained. The images were reviewed on a PACS workstation. COMPARISON: 04/20/2017 FINDINGS: There is a single viable intrauterine gestation. Cardiac activity is present with 123 beats per min cach[place] dehe. There is a vertex presentation. The placenta is fundal. There is no evidence of placental abruption. There is a normal amount of amniotic fluid with an SARAH = 13.3 cm. Biophysical profile: movement 2/2 tone 2/2. breathing 2/2 SARAH 2/2 Total 04/23 RPTAT: AA . IMPRESSION: Normal biophysical profile. . .Landen Hooks MD, MD Date Time Electronically viewed and signed by .Landen Hooks MD, MD on 05/01/2017 15:37 .S/
[2017-05-01] MEDS ORDERED: LACTATED RINGER'S 1,000 ML IV ONE ×2 (16:30→19:33)
[2017-05-01] MEDS ORDERED: TERBUTALINE 1 MG/ML INJ SC ONE (16:30)
[2017-05-01 16:52] LABS: ADD UMIC NO; UR ASCORBIC ACID NEGATIVE (NEGATIVE); UR BACTERIA FEW /HPF (NONE SEEN); UR BILIRUBIN (Dip) NEGATIVE (NEGATIVE); UR BLOOD (Dip) NEGATIVE (NEGATIVE); UR CLARITY SLIGHTLY CLOUDY (CLEAR); UR COLOR YELLOW (YELLOW); UR GLUCOSE (Dip) NEGATIVE (NEGATIVE); UR KETONES (Dip) 1+ mg/dL (NEGATIVE); UR LEUKOCYTE ESTERASE (Dip) NEGATIVE Leu/ul (NEGATIVE); UR NITRITE (Dip) NEGATIVE (NEGATIVE); UR RBC 0 /HPF (0-5); UR SPECIFIC GRAVITY (Dip) 1.015 (1.003-1.030); UR SQUAMOUS EPITHELIAL CELL FEW /HPF (FEW); UR TOTAL PROTEIN (Dip) NEGATIVE (NEGATIVE); UR UROBILINOGEN (Dip) NEGATIVE (NEGATIVE)
[2017-05-01] MEDS ORDERED: LACTATED RINGER'S 1,000 ML IV SCH ×2 (17:57→21:30)
[2017-05-01] MEDS ORDERED: CARBOPROST 250 MCG INJ IM PRN ×2 (18:00→21:30)
[2017-05-01] MEDS ORDERED: CEFAZOLIN 2 GM/50 ML (PMX) 50 ML IV SCH (18:00)
[2017-05-01] MEDS ORDERED: MISOPROSTOL 200 MCG TAB PR PRN ×2 (18:00→21:30)
[2017-05-01] MEDS ORDERED: OXYTOCIN 30 UNITS/LR 500 ML IV PRN ×2 (18:00→21:30)
[2017-05-01] MEDS ORDERED: METHYLERGONOVINE 0.2 MG INJ IM PRN ×2 (18:00→21:30)
[2017-05-01 18:16] LABS: BASOPHILS % 0.3 % (0.0-2.0); EOSINOPHILS # 0.1 10^3/ul (0.0-0.5); EOSINOPHILS % 0.6 % (0.0-7.0); HEMATOCRIT 27.2 % (37.0-47.0); HEMOGLOBIN 8.3 g/dl (12.0-16.0); LYMPHOCYTES # 2.3 10^3/ul (0.8-2.9); LYMPHOCYTES % 24.1 % (15.0-51.0); MEAN CORPUSCULAR HEMOGLOBIN 21.6 pg (29.0-33.0); MEAN CORPUSCULAR HGB CONC 30.5 g/dl (32.0-37.0); MEAN CORPUSCULAR VOLUME 70.8 fl (82.0-101.0); MEAN PLATELET VOLUME 9.8 fl (7.4-10.4); MONOCYTE # 0.5 10^3/ul (0.3-0.9); MONOCYTES % 4.9 % (0.0-11.0); NEUTROPHILS % 69.5 % (39.0-77.0); PLATELET COUNT 357 10^3/UL (140-415); RED BLOOD COUNT 3.84 10^6/ul (4.20-5.40); RED CELL DISTRIBUTION WIDTH 18.4 % (11.5-14.5); WHITE BLOOD COUNT 9.6 10^3/ul (4.8-10.8)
[2017-05-01 18:49] LABS: INR 0.97; PARTIAL THROMBOPLASTIN TIME 29.5 Sec (25.0-35.0); PROTIME 12.9 Sec (12.2-14.2)
[2017-05-01] MEDS ORDERED: ONDANSETRON 4 MG INJ ONE (19:28)
[2017-05-01] MEDS ORDERED: CITRIC ACID/NA CITRATE 30 ML CUP ONE (19:29)
[2017-05-01] MEDS ORDERED: AMPICILLIN 2 GM/NS (PMX) 100 ML IVPB ONE (19:30)
[2017-05-01] MEDS ORDERED: ONDANSETRON 4 MG INJ IV ONE (20:00)
[2017-05-01] MEDS ORDERED: CITRIC ACID/NA CITRATE 30 ML CUP PO ONE (20:00)
[2017-05-01] MEDS ORDERED: FENTAnyl 50 MCG/ML VIAL ONE (20:10)
[2017-05-01] MEDS ORDERED: morphine SULFATE/PF (10 MG/10 ML) INJ ONE (20:10)
[2017-05-01] MEDS ORDERED: METOCLOPRAMIDE 10 MG INJ ONE (20:37)
[2017-05-01] MEDS ORDERED: PHENYLephrine (100 MCG/ML) 5ML SYG ONE ×2 (20:37→21:07)
[2017-05-01] MEDS ORDERED: EPHEDrine SULFATE 50 MG/5 ML SYG ONE (21:22)
[2017-05-01] MEDS ORDERED: LANOLIN 7 GM TUBE TOP PRN (21:30)
[2017-05-01] MEDS ORDERED: DIPHENHYDRAMINE 50 MG INJ IV PRN (22:00)
[2017-05-01] MEDS ORDERED: TRIMETHOBENZAMIDE 100 MG/ML VIAL IM PRN (22:00)
[2017-05-01] MEDS ORDERED: HYDROmorphONE 1 MG/ML SYG IV PRN ×2 (22:00)
[2017-05-01] MEDS ORDERED: ONDANSETRON 4 MG INJ IV PRN (22:00)
[2017-05-01] MEDS ORDERED: NALOXONE (0.4 MG/ML) INJ IV PRN (22:00)
[2017-05-01] MEDS ORDERED: NALBUPHINE HCL (10 MG/1 ML) INJ IV PRN (22:00)
[2017-05-01] MEDS: KETOROLAC 30 MG INJ IV PRN (23:25)
[2017-05-02] VITALS (9 sets, daily range): BP systolic 113–130; BP diastolic 54–73; PULSE 65–103; RESP 13–18
[2017-05-02] MEDS: OXYTOCIN 30 UNITS/LR 500 ML IV SCH ×4 (00:36→12:00)
[2017-05-02] MEDS: IBUPROFEN 600 MG TAB PO SCH ×4 (01:00→18:00)
[2017-05-02] MEDS: CEFAZOLIN 2 GM/50 ML (PMX) 50 ML IV SCH ×2 (04:39→13:57)
[2017-05-02] MEDS: KETOROLAC 30 MG INJ IV PRN ×3 (05:35→17:37)
[2017-05-02] MEDS: SENNA/DOCUSATE NA (8.6MG/50MG) TAB PO SCH ×2 (09:27→21:00)
--- NOTE | 2017-05-02 09:53 | TRIAGE ---
OB Triage Datetime Report Generated by CPN: 05/01/2017 17:55 Datetime: 05/01/2017 17:00 Stage of : OB Triage Maternal Assessment Level of Consciousness: Fully Conscious Labor Evaluation Frequency: 2-6 Monitor Mode: External Duration (sec)2399: 50-70 Quality: Moderate Resting Tone [place]: Relaxed Heart Rate FHR Baseline Rate: 120 Monitor Mode: External US Variability: Moderate 6-25 bpm Accelerations: 15X15 Decelerations: None Pain Assessment Pain Scale: 9 Pain Presence: Intermittent Pain Type: Cramping Pain Location: Abdomen Pain Goal: 3 Vaginal Exam Membrane Status: Intact Vaginal Bleeding: None Datetime: 05/01/2017 16:00 Stage of : OB Triage Maternal Assessment Level of Consciousness: Fully Conscious Labor Evaluation Frequency: 2-4 Monitor Mode: External Duration (sec)2399: 50-70 Quality: Moderate Resting Tone [place]: Relaxed Heart Rate FHR Baseline Rate: 120 Monitor Mode: External US Variability: Moderate 6-25 bpm Accelerations: 15X15 Decelerations: None Category: Category I Pain Assessment Pain Scale: 9 Pain Presence: Intermittent Pain Type: Cramping Pain Location: Abdomen Pain Goal: 3 Vaginal Exam Membrane Status: Intact Vaginal Bleeding: None Datetime: 05/01/2017 14:51 Assessment Type: Triage Maternal Assessment Level of Consciousness: Fully Conscious DTR's/Clonus: DTRs 2+; No Clonus Headache: Denies Blurred Vision: No Respiratory Effort: Unlabored; Regular Rhythm; Equal Expansion Breath Sounds, Left: Clear and Equal Breath Sounds, Right: Clear and Equal Nausea/Vomiting: Denies RUQ Epigastric Pain: Denies Lower Extremities Edema: Bilateral Lower Extremities Degree: 1+ Upper Extremities Edema: None Degree: None Facial Edema: None Fall Risk Assessment History of Falling: (0) No Secondary Diagnosis: (0) No Ambulatory Aid: (0) Bedrest/Nurse Assist IV Therapy: (0) No Gait: (0) Normal/Bedrest/Immobile Mental Status: (0) Oriented to Own Ability Fall Score: 0 Fall Risk Score Definition: No Risk: No action required Datetime: 05/01/2017 14:40 Monitor Mode: External Monitor Mode: External US Datetime: 05/01/2017 14:30 Time of Arrival: 05/01/2017 14:20 EGA: 37.5 Arrived By: Wheelchair Arrived From: Office Chief Complaint: PT SENT FROM CLINIC FOR R/O LABOR Movement: Present Contractions: Irregular Rupture of Membranes: Denies Vaginal Bleeding: None Vaginal Discharge: Present Recent Sexual Intercouse: Denies Abdominal Trauma: Not Applicable Patient Complaints: Contractions; Cramping; Back Pain Provider Notified: ESHAGHIAN Initial Plan: TERB/IV HYDRATION/BPP Datetime: 04/20/2017 16:54 Stage of : OB Triage Datetime: 04/20/2017 16:08 Labor Evaluation Frequency: 0 Monitor Mode: External Duration (sec)2399: 0 Resting Tone [place]: Relaxed Contraction Comments: PT DENIES UC'S AT THIS TIME , NO UC'S NOTED Heart Rate FHR Baseline Rate: 135 Monitor Mode: External US Variability: Moderate 6-25 bpm Accelerations: 15X15 Decelerations: None Category: Category I Datetime: 04/20/2017 15:46 Time of Arrival: 04/20/2017 15:05 EGA: 36.1 Arrived By: Ambulatory Arrived From: Home Chief Complaint: labial pain 8/10 and vaginal pressure Movement: Present Vaginal Bleeding: None Vaginal Discharge: Denies Recent Sexual Intercouse: Denies Time Provider Notified: 04/20/2017 15:35 Provider Notified: foroohar Initial Plan: SVE AND CALL MD Datetime: 04/11/2017 22:43 EGA: 34.6 Datetime: 03/11/2017 12:13 Fall Score: 0 Fall Risk Score Definition: No Risk: No action required Datetime: 03/11/2017 12:06 EGA: 30.3
--- NOTE | 2017-05-02 09:56 | PREOPHP ---
DATE OF ADMISSION: 05/01/2017 HISTORY OF PRESENT ILLNESS: Ms. Heidy Bernard is a 37- year-old, 4, para 2 ETC 05/17/2017 intrauterine at 37 weeks and 6 days gestational age with a history of previous x2 complaining of severe lower abdominal pain with contractions. Pain scale of 9-10 out of 10. She denies any vaginal bleeding or discharge. She presented to triage where she was having regular contractions and given terbutaline for tocolysis. She is currently 3 cm dilated, 50 percent effaced, -2 station. After explaining the risks, benefits, and alternatives, patient desires elective repeat delivery and declined . Her care took place at [facility]. PAST MEDICAL HISTORY: None. MEDICATIONS: 1. vitamins. 2. Acyclovir. PAST SURGICAL: x2 previous . 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 GYNECOLOGICAL HISTORY: TOCO regular 34 days. Denies any sexually transmitted disease. Sexually active with 1 partner. The patient has a history of genital herpes. SOCIAL HISTORY: Denies any smoking, drugs, or alcohol. FAMILY HISTORY: None. REVIEW OF SYSTEMS: All within normal except history of present illness. PHYSICAL EXAMINATION: HEENT: Within normal limits. CARDIAC: S1, S2. Regular rhythm. ABDOMEN: Gravid, positive lower abdominal tenderness. EXTREMITIES: No edema. No calf tenderness. VAGINAL: No active genital lesions. Cervical dilation 3 cm 50 percent, -2 station. heart tracing category 1. TOCO, irregular contractions. ASSESSMENT: A 37-year-old, 4, para 2, intrauterine at term and in labor. Previous x2. Desires elective repeat delivery. Declined . PLAN: Consent for repeat delivery. Risks, benefits, alternatives and all questions were answered. Dictated By: Jairo Miller MD /kee/waldo /Document#: [id number]
[2017-05-02] MEDS: LACTATED RINGER'S 1,000 ML IV SCH ×2 (10:00→17:41)
[2017-05-02 10:01] LABS: ABNORMAL IP MESSAGE 1; BASOPHILS % 0.2 % (0.0-2.0); EOSINOPHILS % 0.2 % (0.0-7.0); HEMATOCRIT 21.1 % (37.0-47.0); MEAN CORPUSCULAR HEMOGLOBIN 21.5 pg (29.0-33.0); MEAN CORPUSCULAR HGB CONC 30.3 g/dl (32.0-37.0); MEAN PLATELET VOLUME 9.8 fl (7.4-10.4); MONOCYTE # 0.7 10^3/ul (0.3-0.9); MONOCYTES % 7.6 % (0.0-11.0); NEUTROPHILS % 79.4 % (39.0-77.0); PLATELET COUNT 289 10^3/UL (140-415); RED BLOOD COUNT 2.97 10^6/ul (4.20-5.40); RED CELL DISTRIBUTION WIDTH 18.5 % (11.5-14.5)
--- NOTE | 2017-05-02 10:01 | OPR ---
DATE OF OPERATION: 05/01/2017 PRIMARY DIAGNOSIS: A 37-year-old, 4, para 2, intrauterine at 37 weeks and 6 days gestational age. Previous x2, in labor, advanced maternal age. Desires elective repeat delivery. Declined . POSTOPERATIVE DIAGNOSIS: 1. A 37-year-old, 4, para 2, intrauterine at 37 weeks and 6 days gestational age. Previous x2, in labor, advanced maternal age. Desires elective repeat delivery. Declined . 2. malpresentation, abdiaziz breech. OPERATIVE PROCEDURE: Repeat low transverse delivery. SURGEON: Dr. Miller. ANIMAL CARETAKER SUPERVISOR: Charlotte Mckeon MD ANESTHESIA: Spinal. COMPLICATIONS: None. ESTIMATED BLOOD LOSS: 350 mL. OPERATIVE FINDINGS AT SURGERY: A viable male, Apgars 9, 9, respectively at 1 and 5 minutes, weight 3305 g and abdiaziz breech presentation. Normal uterus, tubes, and ovaries. OPERATIVE PROCEDURE: Procedure after explaining the risks, benefits, alternatives, patient consent sign in chart. The patient was taken to the operating room, where spinal anesthesia was found to be adequate. She was then prepared and draped in a normal sterile fashion in dorsal supine position with a leftward tilt. A Pfannenstiel skin incision was then made with a scalpel and carried through the underlying of the fascia. The fascia was incised in the midline. Incision was extended laterally with Heck scissors. The superior aspect of the fascial incision was grasped with Barrington clamps, elevated, and underlying rectus muscles dissected off bluntly. Similarly, the inferior aspect of this incision was grasped, tented up with Barrington clamps and the rectus muscles were dissected off bluntly. The rectus muscles were in midline. Peritoneum identified, tented up, entered sharply with Metzenbaum scissors. The peritoneal incision was extended superiorly and good visualization of the bladder. The bladder blade was then inserted. The vesicouterine peritoneum identified, grasped with pickups, entered sharply with Metzenbaum scissors. This incision was then extended laterally and a bladder flap created digitally. The bladder blade was then reinserted and the lower segment incised in a transverse fashion with the scalpel. The uterine incision was extended laterally. The bladder blade was removed. The buttock were delivered to the level of the scapula. The right arm was flipped across the chest and delivered. The fetus was rotated 180 degrees and the left arm was flipped across the chest and delivered. The head was delivered atraumatically. The nose and the nose and mouth were suctioned and cord clamped and cut. The was handed off to the awaiting pediatric team. The placenta was then removed. The uterus was exteriorized and cleaned and cleared of all clots and debris. The uterine incision was repaired with 1-0 chromic in a running, locked fashion. A second of the same suture was used for imbrication, obtaining excellent hemostasis. The uterus was returned to the abdomen. The gutters were cleared of all clots. The peritoneum and rectus abdominal muscles reapproximated with 3-0 Vicryl in the interrupted fashion. The fascia was reapproximated with 0 Vicryl in a running fashion. The subcutaneous tissue was reapproximated with 2-0 plain gut in a running fashion. The skin was closed with raad. The patient tolerated procedure well. Sponge, lap, needle counts correct. The patient was taken to recovery room in stable condition. Dictated By: Jairo Miller MD /kee/waldo /Document#: [id number] BRE
[2017-05-02 10:10] LABS: HEMOGLOBIN 6.4 g/dl (12.0-16.0); POSITIVE DIFF @See below
[2017-05-02 10:11] LABS: PATH REVIEW? YES
[2017-05-02] MEDS: FERROUS SULFATE (EC) 325 MG TAB PO SCH ×2 (15:01→21:29)
[2017-05-02] MEDS ORDERED: CEFAZOLIN 2 GM/50 ML (PMX) 50 ML IVPB SCH (21:00)
[2017-05-02] MEDS: OXYCODONE/ACETAMINOPHEN (5/325) TAB PO PRN (21:28)
--- NOTE | 2017-05-02 23:21 | QN ---
Documentation Comment progress note pod 1 patient seen and evaluated no complaints no headache, n/v/, sob, visual change, palpitation vs stable afebrile ab dressin clean no distention nt extremity no edema no calf tenderness a/ sp cd pod 1 asymptomatic anemia p/ iron supplement repeat cbc in am consider blood transfusion if patient is symptomatic MARCIE MELENDEZ MD May 02, 2017 23:21
[2017-05-03] MEDS: IBUPROFEN 600 MG TAB PO SCH ×4 (00:02→18:38)
[2017-05-03 03:44] VITALS: BP 111/70; PULSE 91; RESP 18
[2017-05-03] MEDS: OXYCODONE/ACETAMINOPHEN (5/325) TAB PO PRN ×4 (03:44→21:07)
[2017-05-03 08:00] VITALS: BP 116/58; PULSE 82; RESP 16
[2017-05-03] MEDS: SENNA/DOCUSATE NA (8.6MG/50MG) TAB PO SCH ×2 (09:00→21:07)
[2017-05-03] MEDS: FERROUS SULFATE (EC) 325 MG TAB PO SCH ×3 (09:08→21:08)
[2017-05-03 10:49] LABS: ABNORMAL IP MESSAGE 1; BASOPHILS % 0.2 % (0.0-2.0); EOSINOPHILS # 0.1 10^3/ul (0.0-0.5); EOSINOPHILS % 1.2 % (0.0-7.0); HEMATOCRIT 20.3 % (37.0-47.0); LYMPHOCYTES # 1.3 10^3/ul (0.8-2.9); LYMPHOCYTES % 15.3 % (15.0-51.0); MEAN CORPUSCULAR HEMOGLOBIN 21.9 pg (29.0-33.0); MEAN CORPUSCULAR HGB CONC 30.5 g/dl (32.0-37.0); MEAN CORPUSCULAR VOLUME 71.7 fl (82.0-101.0); MEAN PLATELET VOLUME 9.5 fl (7.4-10.4); MONOCYTE # 0.5 10^3/ul (0.3-0.9); MONOCYTES % 6.2 % (0.0-11.0); NEUTROPHILS % 76.1 % (39.0-77.0); PLATELET COUNT 313 10^3/UL (140-415); RED BLOOD COUNT 2.83 10^6/ul (4.20-5.40); RED CELL DISTRIBUTION WIDTH 18.5 % (11.5-14.5); WHITE BLOOD COUNT 8.4 10^3/ul (4.8-10.8)
[2017-05-03 10:58] LABS: POSITIVE DIFF @See below
[2017-05-03 11:02] LABS: HEMOGLOBIN 6.2 g/dl (12.0-16.0)
--- NOTE | 2017-05-03 12:22 | QN ---
Documentation Comment POD#1 is stable afebrile No Vb +flatus+Adequate urine Vs Stable Gen NAD Abd soft NT NDdressing to be removed Genitalia No blood at perinium --->discharge plan tomorrow -->ambulation LUCA VALADEZ M.D. May 03, 2017 12:22
[2017-05-03 15:30] LABS: WHITE BLOOD COUNT 8.6 10^3/ul (4.8-10.8)
[2017-05-03 16:00] VITALS: BP 120/59; PULSE 95; RESP 17
[2017-05-03 20:00] VITALS: BP 116/61; PULSE 94; RESP 18
[2017-05-04] MEDS: IBUPROFEN 600 MG TAB PO SCH ×7 (00:18→23:43)
[2017-05-04] MEDS: OXYCODONE/ACETAMINOPHEN (5/325) TAB PO PRN ×5 (00:46→23:01)
[2017-05-04 04:00] VITALS: BP 122/75; PULSE 91; RESP 18
[2017-05-04 08:00] VITALS: BP 123/71; PULSE 94; RESP 16
[2017-05-04] MEDS: SENNA/DOCUSATE NA (8.6MG/50MG) TAB PO SCH ×2 (09:05→21:02)
[2017-05-04] MEDS: FERROUS SULFATE (EC) 325 MG TAB PO SCH ×3 (09:05→21:02)
--- NOTE | 2017-05-04 15:22 | QN ---
Documentation Comment Progress Note POD #3 Pt c/o breast pain as her milk is coming in but not free flowing yet. Pt is pumping her breasts with a small amount of milk coming out. Had a shower yesterday but not today. Does not want to go home today. T=98.2 BP 123/71 Breasts engorged. Pumping. Incison clean, dry and intact. Lochia minimal. Ext 3+ edema. P: Continue care and plan d/c tomorrow. D/C IV so pt is more free to massage her breasts. Pt needs hot packs and/or a hot shower and breast massage to help get the breast milk moving. Encourage ambulation. NIURKA STEIN MD May 04, 2017 15:22
[2017-05-04 16:03] VITALS: BP 133/69; PULSE 91; RESP 16
[2017-05-04 20:00] VITALS: BP 135/60; PULSE 87; RESP 18
[2017-05-05] VITALS (15 sets, daily range): BP systolic 109–139; BP diastolic 52–69; PULSE 78–95; RESP 18–21
[2017-05-05] MEDS: OXYCODONE/ACETAMINOPHEN (5/325) TAB PO PRN ×4 (03:29→20:00)
[2017-05-05] MEDS: IBUPROFEN 600 MG TAB PO SCH ×4 (05:44→23:30)
[2017-05-05] MEDS: SENNA/DOCUSATE NA (8.6MG/50MG) TAB PO SCH ×2 (08:55→21:15)
[2017-05-05] MEDS: FERROUS SULFATE (EC) 325 MG TAB PO SCH ×3 (08:55→21:15)
[2017-05-05] MEDS ORDERED: DIPHENHYDRAMINE 50 MG CAP PO ONE (10:00)
--- NOTE | 2017-05-05 10:42 | QN ---
Documentation Comment Progress note postop day 4 Patient seen and evaluated patient complains of dizziness and weakness She denies any shortness of breath headache nausea vomiting Vital signs stable afebrile General appearance pale Abdomen soft nontender clean dry and intact no distention Extremity +3 bilateral pitting edema Hemoglobin 6.2 hematocrit 20.3 Assessment status post delivery postop day for symptomatic anemia Plan after explaining the risks benefits alternatives patient patient agreed for blood transfusion Transfuse 2 units packed RBC Pretreat with Benadryl and Tylenol MARCIE MELENDEZ MD May 05, 2017 10:42
[2017-05-06] MEDS: OXYCODONE/ACETAMINOPHEN (5/325) TAB PO PRN ×2 (03:09→11:07)
--- NOTE | 2017-05-06 03:35 | QN ---
Documentation Comment Progress note postop day 5 Patient seen and evaluated Patient denies any dizziness palpitations nausea vomiting shortness of breath visual change Patient feels marked improvement after 2 units of packed RBCs Vital signs stable afebrile General appearance normal HEENT within normal Lungs CTA bilateral CVS positive S1-S2 regular rate rhythm Abdomen soft nontender negative distention uterine fundus at umbilicus clean dry and intact raad intact Extremity no calf tenderness +2 pitting edema bilateral Assessment status post delivery postop day 5 stable afebrile received packed RBC 2 units currently improve symptoms Plan follow-up CBC in morning and if stable patient may go home and follow-up in the office this Saturday to remove his raad MARCIE MELENDEZ MD May 06, 2017 03:35
--- NOTE | 2017-05-06 03:39 | PD.PPDC ---
BIOLOGY PROFESSOR Discharge Instruction Condition Patient Condition: Fair Diet Diet: Resume Regular Diet Activity/Restrictions Activity: Normal Activity May Shower Follow-up Follow-up with Physician: 2, Day/Days Provider Information: to remove raad Return to clinic for CHUTE [facility]ASER Instructions: Fever greater than 101 Chills Worsening abdominal pain Excessive Vaginal Bleeding More than 2 pads per hour Unable to tolerate diet OB Instructions: Breast Tenderness Depression Blurried Vision Headache Surgical Instructions: Incisional Drainage Incisional Redness MARCIE MELENDEZ MD May 06, 2017 03:39
[2017-05-06 04:00] VITALS: BP 140/66; PULSE 78; RESP 18
--- NOTE | 2017-05-06 05:12 | DS ---
DATE OF ADMISSION: 05/01/2017 DATE OF DISCHARGE: PRIMARY DIAGNOSES: 37-year-old, 4, para 2, intrauterine at 37 weeks and 6 days gestational age. Previous C- section x2, in labor, malpresentation, advanced maternal age. Desires elective repeat delivery. Declined . PROCEDURE: Repeat low transverse delivery. DISCHARGE CONDITION: Stable. DISCHARGE INSTRUCTIONS: No heavy lifting x6 weeks. Diet regular. DISCHARGE MEDICATIONS: 1. Motrin. 2. Percocet. 3. Iron. Colace. HISTORY OF PRESENT ILLNESS AND HOSPITAL COURSE:: Miss Kirk is a 37-year-old, 4, para 3, status post repeat low transverse delivery on 05/01/2017. She had a viable male, 9 and 9 respectively at 1 and 5 minutes, weight 3305 g and abdiaziz breech presentation. She had uneventful postop day 1, 2 and 3. However, on postop day 4, she did report dizziness and weakness secondary to her anemia. She received two units of packed RBCs. Currently she is on postop day 5 and she is reporting marked improvement of her symptoms. She denies any dizziness, nausea, vomiting, shortness of breath, visual changes, or palpitations. I will follow up her CBC in the morning and if stable, she may go home and follow up in the office this Saturday to remove her raad. Dictated By: Jairo Miller MD /kee/marv /Document#: [id number]
[2017-05-06] MEDS: IBUPROFEN 600 MG TAB PO SCH (05:47)
[2017-05-06 07:43] LABS: BASOPHILS % 0.5 % (0.0-2.0); EOSINOPHILS # 0.2 10^3/ul (0.0-0.5); EOSINOPHILS % 3.5 % (0.0-7.0); HEMATOCRIT 25.6 % (37.0-47.0); HEMOGLOBIN 7.9 g/dl (12.0-16.0); LYMPHOCYTES # 1.4 10^3/ul (0.8-2.9); LYMPHOCYTES % 23.6 % (15.0-51.0); MEAN CORPUSCULAR HEMOGLOBIN 23.8 pg (29.0-33.0); MEAN CORPUSCULAR HGB CONC 30.9 g/dl (32.0-37.0); MEAN CORPUSCULAR VOLUME 77.1 fl (82.0-101.0); MEAN PLATELET VOLUME 10.2 fl (7.4-10.4); MONOCYTE # 0.4 10^3/ul (0.3-0.9); MONOCYTES % 6.6 % (0.0-11.0); NEUTROPHILS % 63.8 % (39.0-77.0); NUCLEATED RED BLOOD CELLS% 0.7 /100WBC (0.0-0.0); PLATELET COUNT 327 10^3/UL (140-415); RED BLOOD COUNT 3.32 10^6/ul (4.20-5.40); RED CELL DISTRIBUTION WIDTH 20.2 % (11.5-14.5)
[2017-05-06 07:45] LABS: POSITIVE DIFF @See below
[2017-05-06 08:20] VITALS: BP 122/56; PULSE 77; RESP 19
[2017-05-06] MEDS: FERROUS SULFATE (EC) 325 MG TAB PO SCH (09:29)
[2017-05-06] MEDS: SENNA/DOCUSATE NA (8.6MG/50MG) TAB PO SCH (09:29)
== END 2017-05-06 12:10 | disposition home or self-care (01) | DRG 766 ==
LOC: OBT 14:28 → L-D 14:28 → OBT 17:55 → L-D 17:55 → PP1 05-02 01:15
PROVIDERS: ADMIT Obstetrics & Gynecology; ATTEND Obstetrics & Gynecology
PROC: 10D00Z1 Extraction of Products of Conception, Low, Open Approach (ICD-10-PCS; principal; 2017-05-01 20:00)
DX: O34.211 Maternal care for low transverse scar from previous cesarean delivery (principal); O32.1XX0 Maternal care for breech presentation, not applicable or unspecified; Z37.0 Single live birth; Z87.59 Personal history of other complications of pregnancy, childbirth and the puerperium; Z3A.37 37 weeks gestation of pregnancy
CPT/HCPCS: 36415; 36430; 76818; 81001; 81003; 85025; 85610; 85730; 86592; 86850; 86900; 86901; 86920; 87340; 94760; 96372; 99464; G0463; J0290; J0690; J1885; J2210; J2274; J2370; J2405; J2590; J2765; J3010; J3105; J7120; P9016